=== PATIENT | female | born 1985 | race Caucasian/White ===

== ENCOUNTER 2017-03-15 14:05 | Emergency (ER) | payer OTHER ==
[~2017-03-15] VITALS: Ht 162.6 cm; Wt 112.5 kg
[~2017-03-15 14:05] MED LIST: HYDR25CA PO; SERT25TA PO
[2017-03-15 14:16] VITALS: BP 155/117
[2017-03-15] MEDS ORDERED: BUPIVACAINE 0.5% 50 ML VIAL. IJ ONE (14:45)
[2017-03-15] MEDS ORDERED: HYDR-971 PO (16:06)
--- NOTE | 2017-03-15 16:06 | PHYS DOC ---
Past Medical History Past Medical History: Anxiety, Depression, Migraines Past Surgical History: Cholecystectomy, Alcohol Use: Occasionally Drug Use: None Adult General Chief Complaint Chief Complaint: ABSCESS HPI HPI Patient is a 32 year old female who presents with a Bartholin's cyst on the left labia for the last 3 days. Patient denies any drainage from the area. Patient states she has had a Bartholin cyst 4 years ago that was drained and a catheter was placed. Review of Systems Review of Systems Constitutional: Denies fever or chills [] Musculoskeletal: Denies back pain or joint pain [] Integument: Bartholin's cyst on the left labia Neurologic: Denies headache, focal weakness or sensory changes [] Current Medications Current Medications Current Medications Medications (Trade) Dose Ordered Sig/Félix Start Time Stop Time Status Last Admin Dose Admin Bupivacaine HCl (Marcaine 0.5%) 50 ml 1X ONCE 03/15/17 14:45 03/15/17 14:46 DC 03/15/17 14:44 50 ML Allergies Allergies Allergies Coded Allergies Type Severity Reaction Last Updated Verified No Known Drug Allergies 04/23/15 No Physical Exam Physical Exam Constitutional: Well developed, well nourished, no acute distress, non-toxic appearance. [] Skin: Left labia with a lemon sized Bartholin's cyst. No erythema or warmth to the area. The area is very fluctuant Back: No tenderness, no CVA tenderness. [] Extremities: No tenderness, no cyanosis, no clubbing, ROM intact, no edema. [] Neurologic: Alert and oriented X 3, normal motor function, normal sensory function, no focal deficits noted. [] Psychologic: Affect normal, judgement normal, mood normal. [] Current Patient Data Vital Signs Vital Signs Date Time Temp Pulse Resp B/P (MAP) Pulse Ox O2 Delivery O2 Flow Rate FiO2 03/15/17 14:16 98.9 111 20 96 Room Air 98.9 EKG EKG [] Radiology/Procedures Radiology/Procedures Indication: Bartholin's cyst on the left labia Procedure: The patient was positioned appropriately. Local anesthesia was 0.5% of bupivacaine. An incision was then made over the apex of the lesion and moderate amount yellow bloody material was expressed. The drainage cavity was irrigated and word catheter was placed. The patients tetanus status updated as needed. The patient tolerated the procedure well. Complications: none.[] Course & Med Decision Making Course & Med Decision Making Pertinent Labs and Imaging studies reviewed. (See chart for details) Patient has a left Bartholin's cyst that was drained by me as noted in procedures and a Word catheter placed. Tetanus is up-to-date. She will return to the ED in 2 days for wound check and catheter removal. Dragon Disclaimer Dragon Disclaimer This electronic medical record was generated, in whole or in part, using a voice recognition dictation system. Departure Departure Impression: Primary Impression: Bartholin's cyst Disposition: HOME, SELF-CARE Condition: STABLE Referrals: TRICIA MARTEL MD (PCP) Follow-up with the ED 2 days for catheter removal and wound check Patient Instructions: Bartholin's Cyst and Abscess-Brief Additional Instructions: You had a left labial Bartholin cyst drained in the ED. We did place a Word catheter in. Come back in the ED 2 days for wound check and catheter removal. Do not drive or operate machinery on the pain medicine. Apply warm compresses to the area twice a day. Keep the area clean and dry. Scripts Hydrocodone/Apap 5-325 (NORCO 5-325 TABLET) 1 Each Tablet 1-2 TAB PO Q4-6HRS, #20 TAB Prov: SALVATORE PINON APRN 03/15/17 SALVATORE PINON APRN Mar 15, 2017 16:06
== END 2017-03-15 16:05 | disposition home or self-care (01) ==
LOC: ER 14:05
DX: N75.0 Cyst of Bartholin's gland (principal); G43.909 Migraine, unspecified, not intractable, without status migrainosus
CPT/HCPCS: 56420; 99284; J3490

== ENCOUNTER 2017-06-14 18:03 | Emergency (ER) | payer OTHER ==
[~2017-06-14] VITALS: Ht 162.6 cm; Wt 112.5 kg
[~2017-06-14 18:03] MED LIST changes: +HYDR-971 PO
[2017-06-14] MEDS ORDERED: IV NORMAL SALINE 1000ML BAG 1,000 ML IV ONE (19:15)
[2017-06-14] MEDS ORDERED: FAMOTIDINE 20 MG/2 ML VIAL IVP ONE (19:15)
[2017-06-14] MEDS ORDERED: ONDANSETRON PF 4 MG/2 ML VIAL. IV ONE (19:15)
--- NOTE | 2017-06-14 19:20 | PHYS DOC ---
Past Medical History Past Medical History: No Pertinent History Past Surgical History: Cholecystectomy Alcohol Use: None Drug Use: None Adult General Chief Complaint Chief Complaint: NAUSEA/VOMITING/DIARRHA HPI HPI Patient is a 32 year old male who presents with 1 day history of moderate severity nausea vomiting but no diarrhea no abdominal pain [place]: mild headache history of migraines history of cholecystectomy. Denies diabetes. Review of Systems Review of Systems Constitutional: Denies fever or chills [] Eyes: Denies change in visual acuity, redness, or eye pain [] HENT: Denies nasal congestion or sore throat [] Respiratory: Denies cough or shortness of breath [] Cardiovascular: No additional information not addressed in HPI [] GI: Denies abdominal pain, nausea, vomiting, bloody stools or diarrhea [] : Denies dysuria or hematuria [] Musculoskeletal: Denies back pain or joint pain [] Integument: Denies rash or skin lesions [] Neurologic: Denies headache, focal weakness or sensory changes [] Endocrine: Denies polyuria or polydipsia [] All other systems were reviewed and found to be within normal limits, except as documented in this note. Current Medications Current Medications Current Medications Medications (Trade) Dose Ordered Sig/Félix Start Time Stop Time Status Last Admin Dose Admin Famotidine (Pepcid Vial) 20 mg 1X ONCE 06/14/17 19:15 06/14/17 19:17 DC 06/14/17 19:40 20 MG Ondansetron HCl (Zofran) 4 mg 1X ONCE 06/14/17 19:15 06/14/17 19:17 DC 06/14/17 19:40 4 MG Sodium Chloride 1,000 ml @ 1,000 mls/hr 1X ONCE 06/14/17 19:15 06/14/17 20:14 DC 06/14/17 19:40 1,000 MLS/HR Allergies Allergies Allergies Coded Allergies Type Severity Reaction Last Updated Verified No Known Drug Allergies 04/23/15 No Physical Exam Physical Exam Constitutional: Well developed, well nourished, no acute distress, non-toxic appearance. [] HENT: Normocephalic, atraumatic, bilateral external ears normal, oropharynx moist, no oral exudates, nose normal. [] Eyes: PERRLA, EOMI, conjunctiva normal, no discharge. [] Neck: Normal range of motion, no tenderness, supple, no stridor. [] Cardiovascular:Heart rate regular rhythm, no murmur [] Lungs & Thorax: Bilateral breath sounds clear to auscultation [] Abdomen: Bowel sounds normal, soft, no tenderness, no masses, no pulsatile masses. [] Skin: Warm, dry, no erythema, no rash. [] Back: No tenderness, no CVA tenderness. [] Extremities: No tenderness, no cyanosis, no clubbing, ROM intact, no edema. [] Neurologic: Alert and oriented X 3, normal motor function, normal sensory function, no focal deficits noted. [] Psychologic: Affect normal, judgement normal, mood normal. [] Current Patient Data Vital Signs Vital Signs Date Time Temp Pulse Resp B/P (MAP) Pulse Ox O2 Delivery O2 Flow Rate FiO2 06/14/17 20:10 84 18 119/65 (83) 98 Room Air 06/14/17 19:03 99.0 99.0 Lab Values Laboratory Tests Test 06/14/17 19:07 06/14/17 19:15 06/14/17 19:25 White Blood Count 9.3 x10^3/uL (4.0-11.0) Red Blood Count 4.56 x10^6/uL (3.50-5.40) Hemoglobin 14.1 g/dL (12.0-15.5) Hematocrit 42.0 % (36.0-47.0) Mean Corpuscular Volume 92 fL (79-100) Mean Corpuscular Hemoglobin 31 pg (25-35) Mean Corpuscular Hemoglobin Concent 34 g/dL (31-37) Red Cell Distribution Width 14.0 % (11.5-14.5) Platelet Count 248 x10^3/uL (140-400) Neutrophils (%) (Auto) 74 % (31-73) H Lymphocytes (%) (Auto) 16 % (24-48) L Monocytes (%) (Auto) 9 % (0-9) Eosinophils (%) (Auto) 0 % (0-3) Basophils (%) (Auto) 0 % (0-3) Neutrophils # (Auto) 6.9 x10^3uL (1.8-7.7) Lymphocytes # (Auto) 1.5 x10^3/uL (1.0-4.8) Monocytes # (Auto) 0.9 x10^3/uL (0.0-1.1) Eosinophils # (Auto) 0.0 x10^3/uL (0.0-0.7) Basophils # (Auto) 0.0 x10^3/uL (0.0-0.2) Sodium Level 139 mmol/L (136-145) Potassium Level 3.6 mmol/L (3.5-5.1) Chloride Level 103 mmol/L (98-107) Carbon Dioxide Level 28 mmol/L (21-32) Anion Gap 8 (6-14) Blood Urea Nitrogen 12 mg/dL (7-20) Creatinine 0.8 mg/dL (0.6-1.0) Estimated GFR (Cockcroft-Gault) 82.1 BUN/Creatinine Ratio 15 (6-20) Glucose Level 99 mg/dL (70-99) Calcium Level 9.2 mg/dL (8.5-10.1) Total Bilirubin 0.6 mg/dL (0.2-1.0) Aspartate Amino Transferase (AST) 38 U/L (15-37) H Alanine Aminotransferase (ALT) 79 U/L (14-59) H Alkaline Phosphatase 99 U/L (46-116) Total Protein 7.8 g/dL (6.4-8.2) Albumin 3.4 g/dL (3.4-5.0) Albumin/Globulin Ratio 0.8 (1.0-1.7) L Lipase 54 U/L (73-393) L POC Urine HCG, Qualitative Hcg negative (Negative) Urine Collection Type Unknown Urine Color M[place] Urine Clarity Cloudy Urine pH 6.5 Urine Specific [place] >=1.030 Urine Protein Negative mg/dL (NEG-TRACE) Urine Glucose (UA) Negative mg/dL (NEG) Urine Ketones (Stick) 40 mg/dL (NEG) Urine Blood Negative (NEG) Urine Nitrite Negative (NEG) Urine Bilirubin Small (NEG) Urine Urobilinogen Dipstick 1.0 mg/dL (0.2 mg/dL) Urine Leukocyte Esterase Negative (NEG) Urine RBC Occ /HPF (0-2) Urine WBC 1-4 /HPF (0-4) Urine Squamous Epithelial Cells Mod /LPF Urine Bacteria Few /HPF (0-FEW) Urine Mucus Marked /LPF Laboratory Tests 06/14/17 19:07 Laboratory Tests 06/14/17 19:07 EKG EKG [] Radiology/Procedures Radiology/Procedures [] Course & Med Decision Making Course & Med Decision Making Pertinent Labs and Imaging studies reviewed. (See chart for details) [p]KYLE to check labs treat symptoms reexamination. 835pm PM reexamination patient is comfortable feeling much improved wants to go home headache resolved discussed labs which are unremarkable. Dragon Disclaimer Dragon Disclaimer This electronic medical record was generated, in whole or in part, using a voice recognition dictation system. Departure Departure Impression: Primary Impression: Nausea & vomiting Additional Impression: Dehydration Disposition: 01 HOME, SELF-CARE Condition: IMPROVED Referrals: TRICIA MARTEL MD (PCP) Patient Instructions: Dehydration, Adult, [id number], Nausea and Vomiting, [id number] Scripts Ondansetron (ZOFRAN ODT) 4 Mg Tab.rapdis 4 MG PO TID Y for NAUSEA/VOMITING, #10 TAB Prov: TAMMI ROBLES MD 06/14/17 Problem Qualifiers TAMMI ROBLES MD Jun 14, 2017 19:20
[2017-06-14 19:29] LABS: BASO % 0 % (0-3); EOS % 0 % (0-3); HEMOGLOBIN 14.1 g/dL (12.0-15.5); LYMPH # 1.5 x10^3/uL (1.0-4.8); LYMPH % 16 % (24-48); MEAN CORPUSCULAR HEMOGLOBIN 31 pg (25-35); MEAN CORPUSCULAR HGB CONC 34 g/dL (31-37); MEAN CORPUSCULAR VOLUME 92 fL (79-100); MONO % 9 % (0-9); NEUT % 74 % (31-73); PLATELET COUNT 248 x10^3/uL (140-400); RED BLOOD COUNT 4.56 x10^6/uL (3.50-5.40); WHITE BLOOD COUNT 9.3 x10^3/uL (4.0-11.0)
[2017-06-14 19:32] LABS: BILIRUBIN,URINE SMALL (NEG); GLUCOSE,URINE NEGATIVE (NEG); NITRITE,URINE NEGATIVE (NEG); PH,URINE 6.5; PROTEIN,URINE NEGATIVE (NEG-TRACE)
[2017-06-14 19:46] LABS: CALCIUM 9.2 mg/dL (8.5-10.1); CREATININE 0.8 mg/dL (0.6-1.0); GFR 82.1; POTASSIUM 3.6 mmol/L (3.5-5.1)
[2017-06-14 19:53] LABS: ALBUMIN 3.4 g/dL (3.4-5.0); ALBUMIN/GLOBULIN RATIO 0.8 (1.0-1.7); TOTAL BILIRUBIN 0.6 mg/dL (0.2-1.0); TOTAL PROTEIN 7.8 g/dL (6.4-8.2)
[2017-06-14 20:00] LABS: BACTERIA,URINE FEW /HPF (0-FEW); RBC,URINE OCC /HPF (0-2); SQUAMOUS EPITHELIAL CELL,UR MOD /LPF
[2017-06-14 20:10] VITALS: BP 119/65
[2017-06-14] MEDS ORDERED: ONDA4TAB10 PO (20:37)
== END 2017-06-14 20:40 | disposition home or self-care (01) ==
LOC: ER 18:03
DX: R11.2 Nausea with vomiting, unspecified (principal); E86.0 Dehydration; R51 Headache; G43.909 Migraine, unspecified, not intractable, without status migrainosus; Z90.49 Acquired absence of other specified parts of digestive tract
CPT/HCPCS: 36415; 80053; 81001; 81025; 83690; 85025; 96361; 96374; 96375; 99284; J2405; J7030; S0028

== ENCOUNTER 2017-06-24 12:26 | Emergency (ER) | payer OTHER ==
[~2017-06-24 12:26] MED LIST changes: +ONDA4TAB10 PO
[2017-06-24] MEDS ORDERED: KETOROLAC 15 MG/ML VIAL. IV ONE (14:30)
[2017-06-24] MEDS ORDERED: ONDANSETRON PF 4 MG/2 ML VIAL. IV ONE (14:30)
[2017-06-24] MEDS ORDERED: HYDROmorphone 2 MG/ML VIAL IV ONE (14:30)
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
[2017-06-24] MEDS ORDERED: HYDR-971 PO (15:45)
[2017-06-24] MEDS ORDERED: IBUP-1007 PO (15:45)
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
--- NOTE | 2017-06-24 17:03 | RAD ---
Indication: Wrist fracture. Technique: Axial images and coronal and sagittal reformatted images are provided. There were difficulties with the 3D imaging software, limited 3D series is provided. No comparison is available. One or more of the following individualized dose reduction techniques were utilized for this examination: 1. Automated exposure control 2. Adjustment of the mA and/or kV according to patient size 3. Use of iterative reconstruction technique Findings: Imaging demonstrates distal radial fracture extending into the radiocarpal joint and probably into the distal radial ulnar joint. There is slight impaction of fragments with 4 mm of overlap. There is no significant ulnar variance. Fracture is comminuted and appears acute and traumatic. An additional fracture is not apparent. There is no dislocation. There is soft tissue swelling. IMPRESSION: Acute comminuted distal radial fracture extends into the radiocarpal joint and probably into the distal radial ulnar joint. Electronically signed by: Doc Merida MD (06/24/2017 4:58 PM) [facility]
[2017-06-24 17:12] VITALS: BP 132/76
== END 2017-06-24 17:13 | disposition home or self-care (01) ==
LOC: ER 12:26
DX: S52.502A Unspecified fracture of the lower end of left radius, initial encounter for closed fracture (principal); S80.11XA Contusion of right lower leg, initial encounter; Z90.49 Acquired absence of other specified parts of digestive tract; Z98.51 Tubal ligation status; V49.40XA Driver injured in collision with unspecified motor vehicles in traffic accident, initial encounter; Y93.89 Activity, other specified; Y99.8 Other external cause status; Y92.488 Other paved roadways as the place of occurrence of the external cause
CPT/HCPCS: 29125; 73080; 73090; 73110; 73130; 73200; 73562; 73590; 96374; 96375; 99284; J1170; J1885; J2405

== ENCOUNTER → 2017-07-11 | Outpatient (CLI) | payer OTHER ==
[2017-06-24 17:12] VITALS: BP 132/76
[~2017-07-11] MED LIST changes: +IBUP-1007 PO
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
== END | disposition home or self-care (01) ==
LOC: KCIC 14:45
PROVIDERS: ATTEND Family Medicine
DX: S82.401A Unspecified fracture of shaft of right fibula, initial encounter for closed fracture (principal); X58.XXXA Exposure to other specified factors, initial encounter; Y93.89 Activity, other specified; Y92.89 Other specified places as the place of occurrence of the external cause; Y99.8 Other external cause status
CPT/HCPCS: 73590; 73610; 73630

== ENCOUNTER 2017-07-28 06:53 | Emergency (ER) | payer OTHER ==
[2017-07-28] MEDS: LIDOCAINE 1% PF 2 ML VIAL. INJ (07:27)
== END 2017-07-28 07:30 | disposition home or self-care (01) ==
LOC: ER 06:53
DX: N75.0 Cyst of Bartholin's gland (principal); Z90.49 Acquired absence of other specified parts of digestive tract; Z98.51 Tubal ligation status
CPT/HCPCS: 56420; 99283-25

== ENCOUNTER → 2017-08-18 | Outpatient (CLI) | payer OTHER | END | disposition home or self-care (01) | LOC: KCIC 08:44 | DX: S82.831A Other fracture of upper and lower end of right fibula, initial encounter for closed fracture (principal); X58.XXXA Exposure to other specified factors, initial encounter; Y93.89 Activity, other specified; Y92.89 Other specified places as the place of occurrence of the external cause; Y99.8 Other external cause status | CPT/HCPCS: 73590; 73610 ==

== ENCOUNTER 2019-01-29 16:35 | Emergency (ER) | payer OTHER ==
[~2019-01-29] VITALS: Ht 162.6 cm; Wt 115.7 kg
[~2019-01-29 16:35] MED LIST changes: +CIPR500T94 PO; +HYDR-3164 PO; -HYDR-971 PO
--- NOTE | 2019-01-29 17:04 | PHYS DOC ---
Past Medical History Past Medical History: No Pertinent History Past Surgical History: Cholecystectomy, , Tubal ligation Alcohol Use: None Drug Use: None Adult General Chief Complaint Chief Complaint: SUICDAL IDEATION [facility] Patient is a 34 year old female who presents with suicidal ideation. Patient states that she has her fianc's gun at home and stated that she was thinking about shooting herself. Patient states the fianc locked up the gun in the house currently. Patient states that she has always had plans of suicide but no attempts. Patient has a history of depression, anxiety. Patient is currently on Celexa, Vistaril, Zantac. Patient is currently a [employer] she is currently in [employer] school. Patient has 3 children at home and her fianc that she lives with. Patient states she is feeling this way because she is having a bad relationship with her fianc who has severe depression and PTSD. She states that her fianc finally got help and now he wants everything to go back to normal and good but she is too stressed and can't make everything perfect. Patient states her fianc also went through her phone so messages between her and other classmates and I will let her talk to her classmates he thinks that she is cheating on him. Patient states it's a mix of her bad relationship, stress of school and life in general. Review of Systems Review of Systems Constitutional: Suicidal Ideation. Denies fever or chills [] Eyes: Denies change in visual acuity, redness, or eye pain [] HENT: Denies nasal congestion or sore throat [] Respiratory: Denies cough or shortness of breath [] Cardiovascular: No additional information not addressed in HPI [] GI: Denies abdominal pain, nausea, vomiting, bloody stools or diarrhea [] : Denies dysuria or hematuria [] Musculoskeletal: Denies back pain or joint pain [] Integument: Denies rash or skin lesions [] Neurologic: Denies headache, focal weakness or sensory changes [] All other systems were reviewed and found to be within normal limits, except as documented in this note. Allergies Allergies Allergies Coded Allergies Type Severity Reaction Last Updated Verified No Known Drug Allergies 04/23/15 No Physical Exam Physical Exam Constitutional: Suicidal Ideation. Well developed, well nourished, no acute distress, non-toxic appearance. [] HENT: Normocephalic, atraumatic, bilateral external ears normal, oropharynx moist, no oral exudates, nose normal. [] Eyes: PERRLA, EOMI, conjunctiva normal, no discharge. [] Neck: Normal range of motion, no tenderness, supple, no stridor. [] Cardiovascular:Heart rate regular rhythm, no murmur [] Lungs & Thorax: Bilateral breath sounds clear to auscultation [] Abdomen: Bowel sounds normal, soft, no tenderness, no masses, no pulsatile masses. [] Skin: Warm, dry, no erythema, no rash. [] Back: No tenderness, no CVA tenderness. [] Extremities: No tenderness, no cyanosis, no clubbing, ROM intact, no edema. [] Neurologic: Alert and oriented X 3, normal motor function, normal sensory function, no focal deficits noted. [] Psychologic: Affect normal, judgement normal, mood normal. [] Current Patient Data Vital Signs Vital Signs Date Time Temp Pulse Resp B/P (MAP) Pulse Ox O2 Delivery O2 Flow Rate FiO2 01/29/19 16:48 98.7 87 18 148/79 (102) 97 Room Air 98.7 Lab Values Laboratory Tests Test 01/29/19 16:45 01/29/19 16:54 01/29/19 17:35 Urine Opiates Screen Neg (NEG) Urine Methadone Screen Neg (NEG) Urine Barbiturates Neg (NEG) Urine Phencyclidine Screen Neg (NEG) Urine Amphetamine/Methamphetamine Neg (NEG) Urine Benzodiazepines Screen Neg (NEG) Urine Cocaine Screen Neg (NEG) Urine Cannabinoids Screen Neg (NEG) Urine Ethyl Alcohol Neg (NEG) POC Urine HCG, Qualitative Hcg negative (Negative) White Blood Count 5.9 x10^3/uL (4.0-11.0) Red Blood Count 4.23 x10^6/uL (3.50-5.40) Hemoglobin 13.0 g/dL (12.0-15.5) Hematocrit 38.5 % (36.0-47.0) Mean Corpuscular Volume 91 fL (79-100) Mean Corpuscular Hemoglobin 31 pg (25-35) Mean Corpuscular Hemoglobin Concent 34 g/dL (31-37) Red Cell Distribution Width 14.5 % (11.5-14.5) Platelet Count 217 x10^3/uL (140-400) Neutrophils (%) (Auto) 66 % (31-73) Lymphocytes (%) (Auto) 25 % (24-48) Monocytes (%) (Auto) 8 % (0-9) Eosinophils (%) (Auto) 1 % (0-3) Basophils (%) (Auto) 1 % (0-3) Neutrophils # (Auto) 3.9 x10^3uL (1.8-7.7) Lymphocytes # (Auto) 1.4 x10^3/uL (1.0-4.8) Monocytes # (Auto) 0.5 x10^3/uL (0.0-1.1) Eosinophils # (Auto) 0.1 x10^3/uL (0.0-0.7) Basophils # (Auto) 0.0 x10^3/uL (0.0-0.2) Ethyl Alcohol Level < 10 mg/dL (0-10) Laboratory Tests 01/29/19 17:35 EKG EKG [] Radiology/Procedures Radiology/Procedures [] Course & Med Decision Making Course & Med Decision Making Patient is a 34 year old female who presents with suicidal ideation. Patient states that she has her fijeremiah's gun at home and stated that she was thinking about shooting herself. Patient states the fijeremiah locked up the gun in the house currently. Patient states that she has always had plans of suicide but no attempts. Patient has a history of depression, anxiety. Patient is currently on Celexa, Vistaril, Zantac. Patient is currently a [employer] she is currently in [employer] school. Patient has 3 children at home and her fianc that she lives with. Patient states she is feeling this way because she is having a bad relationship with her fianc who has severe depression and PTSD. She states that her fianc finally got help and now he wants everything to go back to normal and good but she is too stressed and can't make everything perfect. Patient states her fianc also went through her phone so messages between her and other classmates and I will let her talk to her classmates he thinks that she is cheating on him. Patient states it's a mix of her bad relationship, stress of school and life in general. She states she is willing to be admitted to psych facility. She is currently on her menses. Heart rate regular without murmur. Vital signs within normal limits. Alert and oriented. Ambulatory and steady. No extremity edema. Lungs are clear to auscultation all lobes. Speaks Full clear sentences. Denies any pain. Patient denies any current illness, shortness of breath, chest pain, dizziness, headache, nausea, vomiting, diarrhea, fevers, abdominal pain. Skin pink warm and dry. Pat team has been consulted. Patient is medically cleared. PAT team has spoken to the patient and the patient has been accepted to [facility]. Patient transferred per EMS. Dragon Disclaimer Dragon Disclaimer This electronic medical record was generated, in whole or in part, using a voice recognition dictation system. Departure Departure Impression: Primary Impression: Suicidal ideation Disposition: 65 XFER TO PSYCH HOSP/UNIT Condition: STABLE Referrals: TRICIA MARTEL MD (PCP) Patient Instructions: Suicidal Feelings, How to Help Yourself ELTON CASAS LICENSE REGISTRATION EXAMINER Jan 29, 2019 17:04
[2019-01-29 17:07] LABS: BARBITURATES NEG (NEG); BENZODIAZEPINES NEG (NEG); CANNABINOIDS NEG (NEG); COCAINE NEG (NEG); METHADONE NEG (NEG); OPIATES NEG (NEG); PHENCYCLIDINE NEG (NEG)
[2019-01-29 17:11] LABS: AMPHETAMINE/METHAMPHETAMINE NEG (NEG)
[2019-01-29 17:42] LABS: BASO % 1 % (0-3); EOS # 0.1 x10^3/uL (0.0-0.7); EOS % 1 % (0-3); HEMATOCRIT 38.5 % (36.0-47.0); LYMPH # 1.4 x10^3/uL (1.0-4.8); LYMPH % 25 % (24-48); MEAN CORPUSCULAR HEMOGLOBIN 31 pg (25-35); MEAN CORPUSCULAR HGB CONC 34 g/dL (31-37); MEAN CORPUSCULAR VOLUME 91 fL (79-100); MONO # 0.5 x10^3/uL (0.0-1.1); MONO % 8 % (0-9); NEUT # 3.9 x10^3uL (1.8-7.7); NEUT % 66 % (31-73); PLATELET COUNT 217 x10^3/uL (140-400); RED BLOOD COUNT 4.23 x10^6/uL (3.50-5.40); RED CELL DISTRIBUTION WIDTH 14.5 % (11.5-14.5); WHITE BLOOD COUNT 5.9 x10^3/uL (4.0-11.0)
[2019-01-29 19:24] VITALS: BP 152/88
[2019-01-29 19:41] LABS: CALCIUM 8.8 mg/dL (8.5-10.1); CREATININE 0.8 mg/dL (0.6-1.0); GFR 81.2; POTASSIUM 3.7 mmol/L (3.5-5.1)
[2019-01-29 19:47] LABS: ALBUMIN 3.2 g/dL (3.4-5.0); ALBUMIN/GLOBULIN RATIO 0.9 (1.0-1.7); TOTAL BILIRUBIN 0.6 mg/dL (0.2-1.0); TOTAL PROTEIN 6.9 g/dL (6.4-8.2)
== END 2019-01-29 19:51 ==
LOC: ER 16:35
DX: R45.851 Suicidal ideations (principal); F41.9 Anxiety disorder, unspecified; F32.9 Major depressive disorder, single episode, unspecified
CPT/HCPCS: 36415; 80053; 80307; 81025; 85025; 99285; G0480

== ENCOUNTER → 2019-02-20 | Outpatient (CLI) | payer MEDICAID ==
[2019-01-29 19:24] VITALS: BP 152/88
--- NOTE | 2019-02-20 15:37 | KCIC ---
CLINICAL HISTORY: Thyromegaly. Difficulty with swallowing. COMPARISON: None available. TECHNIQUE: Ultrasound examination of the thyroid gland was performed FINDINGS: Right thyroid measures 5.8 x 2.4 x 2.2 cm. The left thyroid measures 5.6 x 2.1 x 1.7 cm. The isthmus measures 0.5 cm in thickness. A 0.5 x 0.4 x 0.6 cm hypoechoic deep right lower pole thyroid nodule is seen. A 0.5 x 0.5 x 0.6 cm deep lower pole left thyroid nodule is seen. There is no regional cervical lymphadenopathy. IMPRESSION: Thyromegaly. Bilateral thyroid nodules measuring up to 0.6 cm. Electronically signed by: Paul Arauz MD (02/20/2019 3:34 PM) [facility]
== END | disposition home or self-care (01) ==
LOC: KCIC US 07:56
PROVIDERS: ATTEND Internal Medicine
DX: E04.2 Nontoxic multinodular goiter (principal)
CPT/HCPCS: 76536